=== PATIENT | male | born 1950 | race Caucasian/White ===

== ENCOUNTER 2021-02-18 13:54 | Inpatient (IN) ==
[2021-02-18 14:40] LABS: Basophils % 0.1 %; Hematocrit 35.1 % (37.5-50.1); Hemoglobin 11.1 g/dL (12.9-16.9); Immature Granulocytes % 0.4 % (0-4); Lymphocytes # 0.6 K/mcL (0.6-4.6); Lymphocytes % 9.6 %; Mean Corpuscular HGB Conc 31.6 g/dL (31.6-35.5); Mean Corpuscular Hemoglobin 30.4 pg (28.0-33.3); Mean Corpuscular Volume 96.2 fL (83.0-100.0); Monocytes # 0.5 K/mcL (0.0-1.3); Monocytes % 6.9 %; Neutrophils # 5.6 K/mcL (1.6-8.9); Platelet Count 139 K/mcL (140-400); Red Blood Count 3.65 M/mcL (4.19-5.50); Red Cell Distribution Width 13.5 % (11.5-14.5); White Blood Count 6.7 K/mcL (4.3-11.1)
[2021-02-18 14:49] LABS: INR 1.1; Prothrombin Time 12.6 Seconds (9.4-12.1)
[2021-02-18 14:52] LABS: Activated Partial Thrombo Time 32.8 Seconds (26.0-36.0)
[2021-02-18 15:12] LABS: Alanine Aminotransferase 106 Units/L (7-52); Albumin/Globulin Ratio 1.7 (1.1-2.2); Alkaline Phosphatase 64 Units/L (34-104); Aspartate Amino Transferase 111 Units/L (13-39); BUN/Creatinine Ratio 13 (6-26); Bilirubin,Direct 0.2 mg/dL (0.0-0.2); Bilirubin,Indirect 0.6 mg/dL (0.0-1.0); Bilirubin,Total 0.8 mg/dL (0.3-1.0); Blood Urea Nitrogen 10 mg/dL (8-23); Calcium 9.3 mg/dL (8.6-10.3); Carbon Dioxide 28 mEq/L (23-29); Chloride 102 mEq/L (98-107); Globulin 2.4 g/dL (2.4-3.5); Glucose 124 mg/dL (70-105); Osmolality,Calculated 284 (280-300); Potassium 4.4 mEq/L (3.5-5.1); Sodium 137 mEq/L (136-145); Total Protein 6.4 g/dL (6.4-8.9); Troponin I 0.25 ng/mL (< 0.04); eGFR For African Americans > 60 (> 60); eGFR For Non-African Americans > 60 (> 60)
[2021-02-18] MEDS: Ipratropium/Albuterol Neb 3 ML IH ONE (16:05)
[2021-02-18] MEDS ORDERED: Aspirin 325 MG TABLET PO ONE (16:38)
[2021-02-18] MEDS ORDERED: methylPREDNISolone 125 MG/2 ML VIAL IVP ONE (16:39)
[2021-02-18] MEDS ORDERED: Ipratropium/Albuterol Neb 3 ML IH ONE (16:39)
[2021-02-18] MEDS ORDERED: *HR* Heparin 5,000 UNIT/ML VIAL IVP PRN ×2 (18:20)
[2021-02-18] MEDS ORDERED: Heparin 25,000UNIT/250ML 1/2NS 25,000 UNIT/250 ML IV.SOLN IVC SCH ×2 (18:30)
[2021-02-18 19:13] LABS: Influenza A PCR Negative (Negative); Influenza B PCR Negative (Negative); Resp. Syncytial Virus PCR Negative (Negative)
[2021-02-18 19:13] LABS: Hematocrit 33.5 % (37.5-50.1); Hemoglobin 10.6 g/dL (12.9-16.9); Mean Corpuscular HGB Conc 31.6 g/dL (31.6-35.5); Mean Corpuscular Hemoglobin 30.6 pg (28.0-33.3); Mean Corpuscular Volume 96.8 fL (83.0-100.0); Mean Platelet Volume 10.3 fL (9.4-12.4); Platelet Count 134 K/mcL (140-400); Red Blood Count 3.46 M/mcL (4.19-5.50); Red Cell Distribution Width 13.5 % (11.5-14.5); White Blood Count 5.3 K/mcL (4.3-11.1)
[2021-02-18 19:14] LABS: SARS-CoV-2 by PCR (In House) Negative (Negative)
[2021-02-18 19:17] LABS: INR 1.1; Prothrombin Time 12.5 Seconds (9.4-12.1)
[2021-02-18 19:20] LABS: Heparin anti-factor XA UFH < 0.04 IU/mL (0.30-0.70)
[2021-02-18] MEDS ORDERED: Naloxone 0.4 MG/ML INJ IVP PRN (20:23)
[2021-02-18] MEDS ORDERED: Acetaminophen 325 MG TABLET PO PRN (20:23)
[2021-02-18] MEDS ORDERED: Ondansetron 4 MG/2 ML VIAL IVP PRN (20:23)
[2021-02-18] MEDS ORDERED: Melatonin 3 MG TABLET PO PRN (20:23)
[2021-02-18] MEDS ORDERED: *HR* HYDROcodone/Acet 5/325 mg TABLET PO PRN (20:23)
[2021-02-18] MEDS ORDERED: *HR* Promethazine 25 MG/ML VIAL IM PRN (20:23)
[2021-02-18] MEDS ORDERED: NON-FORMULARY MEDICATION 1 EACH EACH (Sildenafil Citrate [Viagra] 100 MG Tablet) PO PRN (20:27)
[2021-02-18] MEDS ORDERED: Artificial Tears SOLN 15 ML BOTTLE BOTH EYES PRN (20:27)
[2021-02-18] MEDS ORDERED: Simethicone 80 MG TAB.CHEW PO PRN (20:27)
[2021-02-18] MEDS ORDERED: Nicotine 2 MG GUM PO PRN (20:30)
[2021-02-18] MEDS ORDERED: Perflutren Lipid Microsphere 1.3 ML in 0.9 % Sodium Chloride 8.7 ML IVP PRN (20:40)
[2021-02-18] MEDS ORDERED: Furosemide 40 MG/4 ML VIAL IVP ONE (20:44)
[2021-02-18 21:30] LABS: Acetaminophen 12 mcg/mL (10-20)
[2021-02-18] MEDS: QUEtiapine Fumarate 300 MG TABLET PO SCH (21:36)
[2021-02-18] MEDS: Gabapentin 300 MG CAPSULE PO SCH (21:36)
[2021-02-18] MEDS: Lidocaine 4% CREAM (LMX) 5 GM TP SCH (21:37)
[2021-02-18] MEDS: Budesonide/Formoterol 160/4.5 1 PUFF INH IH SCH (22:24)
[2021-02-18] MEDS ORDERED: Azithromycin 500 MG in 0.9 % Sodium Chloride 250 ML IVPB ONE (22:40)
[2021-02-18] MEDS ORDERED: cefTRIAXone 1,000 MG in Water for inj. (sterile) 10 ML IVP ONE (22:40)
[2021-02-18] MEDS ORDERED: Isovue-370 500 ML BOTTLE IVP ONE (22:41)
[2021-02-18] MEDS ORDERED: Ipratropium/Albuterol Neb 3 ML IH PRN (22:42)
[2021-02-18] MEDS: MethylPREDNISolone 40 MG/ML VIAL IVP SCH (23:38)
[2021-02-18] MEDS: Ipratropium/Albuterol Neb 3 ML IH SCH (23:42)
[2021-02-19 02:34] LABS: Hematocrit 31.4 % (37.5-50.1); Hemoglobin 10.1 g/dL (12.9-16.9); Immature Granulocytes % 0.2 % (0-4); Lymphocytes # 0.5 K/mcL (0.6-4.6); Lymphocytes % 9.9 %; Mean Corpuscular HGB Conc 32.2 g/dL (31.6-35.5); Mean Corpuscular Hemoglobin 30.7 pg (28.0-33.3); Mean Corpuscular Volume 95.4 fL (83.0-100.0); Mean Platelet Volume 10.7 fL (9.4-12.4); Monocytes # 0.1 K/mcL (0.0-1.3); Monocytes % 1.8 %; Platelet Count 128 K/mcL (140-400); Red Blood Count 3.29 M/mcL (4.19-5.50); Red Cell Distribution Width 13.5 % (11.5-14.5); Segmented Neutrophils % 88.1 %; White Blood Count 4.5 K/mcL (4.3-11.1)
[2021-02-19 02:49] LABS: INR 1.2
[2021-02-19] MEDS: Ipratropium/Albuterol Neb 3 ML IH SCH ×6 (04:06→23:21)
[2021-02-19 04:36] LABS: Alanine Aminotransferase 79 Units/L (7-52); Albumin 3.4 g/dL (3.5-5.7); Albumin/Globulin Ratio 1.5 (1.1-2.2); Alkaline Phosphatase 55 Units/L (34-104); Aspartate Amino Transferase 72 Units/L (13-39); BUN/Creatinine Ratio 19 (6-26); Bilirubin,Total 0.6 mg/dL (0.3-1.0); Blood Urea Nitrogen 13 mg/dL (8-23); Calcium 8.6 mg/dL (8.6-10.3); Carbon Dioxide 27 mEq/L (23-29); Chloride 104 mEq/L (98-107); Chol/HDL Ratio 1.8 (0-4.9); Cholesterol 94 mg/dL (< 200); Globulin 2.2 g/dL (2.4-3.5); Glucose 183 mg/dL (70-105); HDL Cholesterol 52 mg/dL (40-59); LDL Cholesterol,Calculated 33 mg/dL (< 100); Magnesium 1.9 mg/dL (1.6-2.6); Osmolality,Calculated 291 (280-300); Phosphorous 2.4 mg/dL (2.7-4.5); Potassium 4.2 mEq/L (3.5-5.1); Sodium 138 mEq/L (136-145); Total Protein 5.6 g/dL (6.4-8.9); Triglycerides 44 mg/dL (< 150); eGFR For African Americans > 60 (> 60); eGFR For Non-African Americans > 60 (> 60)
[2021-02-19 05:14] LABS: Troponin I 0.22 ng/mL (< 0.04)
[2021-02-19] MEDS: Budesonide/Formoterol 160/4.5 1 PUFF INH IH SCH ×2 (07:48→19:53)
[2021-02-19] MEDS: Gabapentin 300 MG CAPSULE PO SCH ×4 (09:54→20:41)
[2021-02-19] MEDS: atenoloL 25 MG TABLET PO SCH (09:54)
[2021-02-19] MEDS: Multivit/Ca/Min/Fe/FA 1 TAB TABLET PO SCH (09:54)
[2021-02-19] MEDS: DilTIAZem CD (24hr) 120 MG CAP.ER.24H PO SCH (09:54)
[2021-02-19] MEDS: Aspirin Enteric Coated 81 MG Tablet PO SCH (09:54)
[2021-02-19] MEDS: cefTRIAXone 1,000 MG in Water for inj. (sterile) 10 ML IVP SCH (09:55)
[2021-02-19] MEDS: Furosemide 40 MG/4 ML VIAL IVP SCH ×2 (09:56→20:40)
[2021-02-19] MEDS: MethylPREDNISolone 40 MG/ML VIAL IVP SCH ×3 (09:56→23:05)
[2021-02-19] MEDS: Rivastigmine Patch 9.5 MG PATCH.TD24 TD SCH (09:57)
[2021-02-19] MEDS: Lidocaine 4% CREAM (LMX) 5 GM TP SCH ×2 (09:58→20:49)
[2021-02-19] MEDS ORDERED: Tiotropium 10 INH DOSE IH SCH (10:00)
[2021-02-19 11:30] LABS: Hepatitis B Surface Antigen Nonreactive (Nonreactive)
[2021-02-19 11:59] LABS: Hepatitis C Virus Antibody Nonreactive (Nonreactive)
[2021-02-19 12:00] LABS: Hepatitis A Antibody IgM Nonreactive (Nonreactive); Hepatitis B Core IgM Nonreactive (Nonreactive)
[2021-02-19] MEDS ORDERED: *HR* Heparin 5,000 UNIT/ML VIAL IVP PRN ×2 (15:02→15:34)
[2021-02-19] MEDS ORDERED: Heparin 25,000UNIT/250ML 1/2NS 25,000 UNIT/250 ML IV.SOLN IVC SCH (15:15)
[2021-02-19] MEDS: Heparin 25,000UNIT/250ML 1/2NS 25,000 UNIT/250 ML IV.SOLN IVC SCH (16:02)
[2021-02-19] MEDS: QUEtiapine Fumarate 300 MG TABLET PO SCH (20:41)
[2021-02-19] MEDS ORDERED: Azithromycin 500 MG in 0.9 % Sodium Chloride 250 ML IVPB SCH (23:00)
[2021-02-20 01:35] LABS: Hematocrit 31.9 % (37.5-50.1); Hemoglobin 10.4 g/dL (12.9-16.9); Mean Corpuscular HGB Conc 32.6 g/dL (31.6-35.5); Mean Corpuscular Hemoglobin 31.3 pg (28.0-33.3); Mean Corpuscular Volume 96.1 fL (83.0-100.0); Mean Platelet Volume 10.7 fL (9.4-12.4); Platelet Count 149 K/mcL (140-400); Red Blood Count 3.32 M/mcL (4.19-5.50); Red Cell Distribution Width 13.8 % (11.5-14.5)
[2021-02-20 01:41] LABS: BUN/Creatinine Ratio 26 (6-26); Blood Urea Nitrogen 20 mg/dL (8-23); Calcium 8.7 mg/dL (8.6-10.3); Carbon Dioxide 31 mEq/L (23-29); Chloride 101 mEq/L (98-107); Glucose 175 mg/dL (70-105); Osmolality,Calculated 293 (280-300); Potassium 3.9 mEq/L (3.5-5.1); Sodium 138 mEq/L (136-145); eGFR For African Americans > 60 (> 60); eGFR For Non-African Americans > 60 (> 60)
[2021-02-20 01:46] LABS: Heparin anti-factor XA UFH 0.57 IU/mL (0.30-0.70)
[2021-02-20 01:47] LABS: INR 1.1; Prothrombin Time 12.2 Seconds (9.4-12.1)
[2021-02-20 01:48] LABS: White Blood Count 8.3 K/mcL (4.3-11.1)
[2021-02-20] MEDS: Ipratropium/Albuterol Neb 3 ML IH SCH ×6 (03:52→23:17)
[2021-02-20] MEDS: Budesonide/Formoterol 160/4.5 1 PUFF INH IH SCH ×2 (08:12→19:34)
[2021-02-20] MEDS ORDERED: Isovue-370 500 ML BOTTLE IVP ONE ×2 (08:28→09:26)
[2021-02-20] MEDS: MethylPREDNISolone 40 MG/ML VIAL IVP SCH (10:18)
[2021-02-20] MEDS: Rivastigmine Patch 9.5 MG PATCH.TD24 TD SCH (10:19)
[2021-02-20] MEDS: Aspirin Enteric Coated 81 MG Tablet PO SCH (10:21)
[2021-02-20] MEDS: Multivit/Ca/Min/Fe/FA 1 TAB TABLET PO SCH (10:21)
[2021-02-20] MEDS: atenoloL 25 MG TABLET PO SCH (10:21)
[2021-02-20] MEDS: Gabapentin 300 MG CAPSULE PO SCH ×2 (10:21→12:58)
[2021-02-20] MEDS: DilTIAZem CD (24hr) 120 MG CAP.ER.24H PO SCH (10:21)
[2021-02-20] MEDS: cefTRIAXone 1,000 MG in Water for inj. (sterile) 10 ML IVP SCH (10:22)
[2021-02-20] MEDS: Furosemide 40 MG/4 ML VIAL IVP SCH (10:22)
[2021-02-20] MEDS: Lidocaine 4% CREAM (LMX) 5 GM TP SCH (10:24)
[2021-02-20] MEDS: Heparin 25,000UNIT/250ML 1/2NS 25,000 UNIT/250 ML IV.SOLN IVC SCH (12:38)
[2021-02-20 15:39] VITALS: BP 114/65; PULSE 69; TEMP 98.2; O2SAT 94
[2021-02-20] MEDS ORDERED: *HR* Rivaroxaban 10 MG TABLET PO SCH (19:00)
[2021-02-21] MEDS ORDERED: Metoprolol XL (24 HR) Succ 25 MG TAB.ER.24H PO SCH (09:00)
== END 2021-02-20 19:30 | disposition home or self-care (01) | DRG 280 ==
LOC: 2ANU 13:54 → EMEROOARM 13:54 → SUATTDRO 19:52 → 2ANU 21:14 → SUATTDRO 02-19 20:37
PROVIDERS: ADMIT Family Medicine; ATTEND Internal Medicine